=== PATIENT | female | born 1950 | race Caucasian/White ===

== ENCOUNTER 2024-08-04 16:06 | Inpatient (IN) | payer MEDICARE ==
[~2024-08-04] VITALS: Ht 172.7 cm; Wt 74.8 kg
[2024-08-04] MEDS ORDERED: METOCLOPRAMIDE HCL 10 MG/2 ML VIAL ONE (17:01)
[2024-08-04] MEDS: METOCLOPRAMIDE HCL 10 MG/2 ML VIAL IV ONE (17:02)
[2024-08-04] MEDS ORDERED: ACETAMINOPHEN 325 MG TABLET PO PRN (20:15)
[2024-08-04] MEDS ORDERED: ONDANSETRON 4 MG/2 ML VIAL IV PRN (20:15)
[2024-08-04 20:31] LABS: BASOPHILS % (AUTO) 0.3 % (0.0-2.0); EOSINOPHILS % (AUTO) 0.7 % (0.0-7.0); HEMATOCRIT 36.6 % (31.2-41.9); HEMOGLOBIN 12.7 g/dL (10.9-14.3); LYMPHOCYTES % (AUTO) 15.5 % (20.5-51.5); MEAN CORPUSCULAR HEMOGLOBIN 30.3 uug (24.7-32.8); MEAN CORPUSCULAR HGB CONC 35 g/dL (32.3-35.6); MEAN CORPUSCULAR VOLUME 87.6 fL (75.5-95.3); MONOCYTES # (AUTO) 0.3 K/uL (0.1-1.30); MONOCYTES % (AUTO) 4.1 % (0.0-11.0); NEUTROPHILS # (AUTO) 5.3 K/uL (1.8-8.9); NEUTROPHILS % (AUTO) 79.4 % (38.5-71.5); PLATELET COUNT (AUTO) 245 K/uL (179-408); RED BLOOD CELL COUNT(AUTO) 4.18 MIL/uL (3.63-4.92); RED CELL DISTRIBUTION WIDTH 13.4 % (12.3-17.7); WHITE BLOOD COUNT (AUTO) 6.7 K/uL (3.8-11.8)
[2024-08-04 20:39] LABS: CALCIUM 9.1 mg/dL (8.5-10.1); CARBON DIOXIDE 26 mmol/L (21-32); CHLORIDE 106 mmol/L (98-107); CREATININE 0.7 mg/dL (0.6-1.3); GLUCOSE 175 mg/dL (74-106); SODIUM SERUM 141 mmol/L (136-145); UREA NITROGEN, BLOOD 17 mg/dL (7-18)
[2024-08-04 20:45] LABS: DIFFERENTIAL COMMENT 1
[2024-08-05 00:13] VITALS: BP 130/67; TEMP 97.7; O2SAT 93
[2024-08-05 04:37] VITALS: BP 95/59; TEMP 97.8; O2SAT 95
[2024-08-05 07:55] VITALS: BP 121/63; TEMP 98.4; O2SAT 94
[2024-08-05] MEDS: ENOXAPARIN SODIUM 30 MG/0.3 ML DISP.SYRIN SQ SCH (08:09)
[2024-08-05 11:24] VITALS: BP_SYST 131; BP_SYST 132; BP_SYST 143; BP_DIAS 53; BP_DIAS 64; BP_DIAS 65
[2024-08-05 11:54] VITALS: BP 143/65; TEMP 97.9; O2SAT 98
== END 2024-08-05 13:20 | disposition home or self-care (01) | DRG 641 ==
LOC: ER 16:06 → TELE3 21:57
PROVIDERS: ADMIT Nurse Practitioner Acute Care; ATTEND Nurse Practitioner Acute Care
DX: E86.1 Hypovolemia (principal); S06.0X1A Concussion with loss of consciousness of 30 minutes or less, initial encounter; R93.0 Abnormal findings on diagnostic imaging of skull and head, not elsewhere classified; E78.5 Hyperlipidemia, unspecified; G93.0 Cerebral cysts; I10 Essential (primary) hypertension; R40.2142 Coma scale, eyes open, spontaneous, at arrival to emergency department; R40.2252 Coma scale, best verbal response, oriented, at arrival to emergency department; W18.39XA Other fall on same level, initial encounter; Y93.89 Activity, other specified; Y92.512 Supermarket, store or market as the place of occurrence of the external cause; R40.2362 Coma scale, best motor response, obeys commands, at arrival to emergency department
CPT/HCPCS: 36415; 70450; 70486; 72125; 85025; 93005; A4606; A4663; G0378; J1650; J2765